=== PATIENT | female | born 1980 | race Caucasian/White ===

== ENCOUNTER 2016-03-01 10:12 | Emergency (ER) | payer OTHER ==
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
[2016-03-01 10:20] VITALS: BP 115/73; PULSE 83; TEMP 98; BMI 31.6
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
[2016-03-01] MEDS ORDERED: DIPHTH,PERTUSS(ACELL),TET 0.5 ML DISP.SYRIN IM ONE (10:36)
== END 2016-03-01 10:59 | disposition home or self-care (01) ==
LOC: FER 10:12
PROC: 3E0234Z Introduction of Serum, Toxoid and Vaccine into Muscle, Percutaneous Approach (ICD-10-PCS; principal; 2016-03-01)
DX: T21.02XA Burn of unspecified degree of abdominal wall, initial encounter (principal); T31.0 Burns involving less than 10% of body surface; T79.8XXA Other early complications of trauma, initial encounter; X19.XXXA Contact with other heat and hot substances, initial encounter; Y93.G3 Activity, cooking and baking; Y92.010 Kitchen of single-family (private) house as the place of occurrence of the external cause; Y99.8 Other external cause status; L24.4 Irritant contact dermatitis due to drugs in contact with skin; T49.0X5A Adverse effect of local antifungal, anti-infective and anti-inflammatory drugs, initial encounter
CPT/HCPCS: 90471; 90715; 99282-25

== ENCOUNTER 2016-06-03 14:58 | Emergency (ER) | payer OTHER ==
--- NOTE | 2016-06-03 15:12 | PDOC ---
History of Present Illness - History of Present Illness Initial Comments: 06/03/16 15:36 The patient is a 36 year old female with no significant past medical hx who presents to the ED complaining of abdominal cramping and diarrhea since today. The patient reports her cramping is localized to the center of her abdomen. She notes multiple episodes of diarrhea today. She notes two days ago she had the same symptoms but yesterday she felt completely fine. She reports she rarely gets stomach aches. She reports associated chills and body aches. She denies sick contacts. The patient denies any nausea or vomiting. She denies fever, dysuria, frequency, vaginal bleeding. Social: Nonsmoker Surgical: Cholecystectomy <Cele Mancuso - Last Filed: 06/03/16 15:36> - History of Present Illness Initial Comments: 06/05/16 07:52 Physical exam: Alert and oriented 3, well-developed well-nourished, no acute distress, cheerful and cooperative Afebrile, vital signs normal No pallor or icterus. PERRLA, ENT clear Neck supple without bruit mass or nodes Chest clear CV regular without murmur or gallop Abdomen nondistended, normal bowel sounds, soft without mass tenderness or organomegaly Extremities no CCE Skin clear, no rash, adequate turgor and wet mucous membranes Neurological intact Impression: Mild gastroenteritis, absolutely no lower quadrant tenderness or indication of appendicitis, ovarian disease, or other more serious abdominal condition. Plan: Intravenous fluids, symptomatic treatment, observation and follow-up as needed. Signed out to Dr. Mcginnis at 4 PM, pending lab results and further evaluation. <Bernabe Bravo - Last Filed: 06/05/16 07:54> - General Chief Complaint: Pain Stated Complaint: MID ABD PAIN Time Seen by Provider: 06/03/16 15:02 Past History <Cele Mancuso - Last Filed: 06/03/16 15:36> - Surgical History Cholecystectomy: Yes - Immunization History Td Vaccination: Yes TDAP Vaccination: (10/2010) Immunization Up to Date: Yes - Psycho/Social/Smoking Cessation Hx Anxiety: No Suicidal Ideation: No Smoking Status: No Smoking History: Never smoked Have you smoked in the past 12 months: No Number of Cigarettes Smoked Daily: 0 Hx Alcohol Use: Yes (occasional) Drug/Substance Use Hx: No Substance Use Type: None Hx Substance Use Treatment: No <MarshaDennisAnabelBernabe Alessandra - Last Filed: 06/05/16 07:54> - Past Medical History Allergies/Adverse Reactions: Allergies Allergy/AdvReac Type Severity Reaction Status Date / Time No Known Allergies Allergy Verified 06/03/16 14:59 Home Medications: Ambulatory Orders NK [No Known Home Medication] 03/01/16 Review of Systems - Review of Systems Able to Perform ROS?: Yes Comments:: 06/03/16 15:36 CONSTITUTIONAL: +Chills, body aches. Absent: fever, diaphoresis, generalized weakness, malaise, loss of appetite HEENT: Absent: rhinorrhea, nasal congestion, throat pain, throat swelling, difficulty swallowing, mouth swelling, ear pain, eye pain, visual Changes CARDIOVASCULAR: Absent: chest pain, syncope, palpitations, irregular heart rate, lightheadedness , peripheral edema RESPIRATORY: Absent: cough, shortness of breath, dyspnea with exertion, orthopnea, wheezing, stridor, hemoptysis GASTROINTESTINAL: +Abdominal cramping, diarrhea. Absent: abdominal distension, constipation, melena, hematochezia GENITOURINARY: Absent: dysuria, frequency, urgency, hesitancy, hematuria, flank pain, genital pain MUSCULOSKELETAL: Absent: myalgia, arthralgia, joint swelling SKIN: Absent: rash, itching, pallor NEUROLOGIC: Absent: headache, focal weakness or paresthesias, dizziness, unsteady gait, seizure, mental status changes, bladder or bowel incontinence PSYCHIATRIC: Absent: anxiety, depression, suicidal or homicidal ideation, hallucinations. <Cele Mancuso - Last Filed: 06/03/16 15:36> *Physical Exam - Vital Signs Last Vital Signs Temp Pulse Resp BP Pulse Ox 98.5 F 82 16 115/77 100 06/03/16 14:58 06/03/16 14:58 06/03/16 14:58 06/03/16 14:58 06/03/16 14:58 - Physical Exam Comments: 06/03/16 15:37 GENERAL: Well developed, well nourished. Awake and alert. In no acute distress. HEENT: Normocephalic, atraumatic. PERRLA, EOMI. No conjunctival pallor. Sclera are non- icteric. Moist mucous membranes. Oropharynx is clear. NECK: Supple. Full ROM. No JVD. Carotid pulses 2+ and symmetric, without bruits. No thyromegaly. No lymphadenopathy. CARDIOVASCULAR: Regular rate and rhythm. No murmurs, rubs, or gallops. Distal pulses are 2+ and symmetric. PULMONARY: No evidence of respiratory distress. Lungs clear to auscultation bilaterally. No wheezing, rales or rhonchi. ABDOMINAL: Soft. Non-tender. Non-distended. No rebound or guarding. No organomegaly. Normoactive bowel sounds. MUSCULOSKELETAL Normal range of motion at all joints. No bony deformities or tenderness. No CVA tenderness. EXTREMITIES: No cyanosis. No clubbing. No edema. No calf tenderness. SKIN: Warm and dry. Normal capillary refill. No rashes. No jaundice. NEUROLOGICAL: Alert, awake, appropriate. Cranial nerves 2-12 intact. No deficits to light touch and temperature in face, upper extremities and lower extremities. PSYCHIATRIC: Cooperative. Good eye contact. Appropriate mood and affect. <Cele Mancuso - Last Filed: 06/03/16 15:36> ED Treatment Course - LABORATORY CBC & Chemistry Diagram: 06/03/16 15:47 06/03/16 15:36 <Bernabe Bravo - Last Filed: 06/05/16 07:54> *DC/Admit/Observation/Transfer - Attestations Scribe Attestion: 06/03/16 15:36 Documentation prepared by Cele Mancuso, acting as medical charge entry specialist for Bernabe Rosas MD/DO. <Cele Mancuso - Last Filed: 06/03/16 15:36> <Bernabe Bravo - Last Filed: 06/05/16 07:54> Diagnosis at time of Disposition: Diarrhea, Mild dehydration - Discharge Dispostion Disposition: HOME Condition at time of disposition: Improved - Patient Instructions Printed Discharge Instructions: Diarrhea (Alternative Therapy), Diarrhea Additional Instructions: You can take some antidiarrheal medication such as Imodium as directed on the box. Return to the emergency department immediately with ANY new, persistent or worsening symptoms. Continue any medications as previously prescribed by your physician. You should follow up with your primary doctor as soon as possible regarding today's emergency department visit. . Please make sure your doctor reviews the results of your emergency evaluation. Thank you for coming to the Emergency Department today for your care. It was a pleasure to see you today. Please note that your evaluation is INCOMPLETE until you follow-up with your doctor.
[2016-06-03 15:28] VITALS: TEMP 98.5; BMI 31.0
[2016-06-03] MEDS ORDERED: ONDANSETRON 4 MG/2 ML VIAL IVPB ONE (15:28)
[2016-06-03] MEDS ORDERED: SODIUM CHLORIDE 1,000 ML IV STA (15:28)
[2016-06-03] MEDS ORDERED: PANTOPRAZOLE SODIUM 40 MG in SODIUM CHLORIDE 100 ML IVPB ONE (15:28)
[2016-06-03] MEDS ORDERED: ONDANSETRON 4 MG/2 ML VIAL ONE (15:32)
[2016-06-03] MEDS ORDERED: PANTOPRAZOLE SODIUM 40 MG VIAL ONE (15:32)
[2016-06-03 16:00] LABS: URINE APPEARANCE Clear; URINE BILIRUBIN Negative (NEGATIVE); URINE BLOOD Negative (NEGATIVE); URINE GLUCOSE (UA) Negative (NEGATIVE); URINE KETONE Negative (NEGATIVE); URINE LEUK ESTERASE Negative (NEGATIVE); URINE NITRITE Negative (NEGATIVE); URINE PROTEIN Negative (NEGATIVE); URINE UROBILINOGEN 0.2 E.U/dl (0.2-1.0)
[2016-06-03 16:01] LABS: URINE COLOR YELLOW
[2016-06-03 16:07] LABS: BASOPHIL 1.5 % (0-2.0); EOSINOPHIL 1.8 % (0-4.5); MCH 25.6 pg (25.7-33.7); MCHC 32.8 g/dl (32.0-36.0); MEAN CELL VOLUME 78.2 fl (80-96); MEAN PLT VOLUME 7.8 fl (7.5-11.1); NEUTROPHILS 67.4 % (42.8-82.8); PLATELET COUNT 222 K/MM3 (134-434); RDW 14.6 % (11.6-15.6); WHITE BLOOD COUNT 6.9 K/mm3 (4.0-10.8)
--- NOTE | 2016-06-03 16:44 | PDOC ---
*Physical Exam - Vital Signs Last Vital Signs Temp Pulse Resp BP Pulse Ox 98.5 F 82 16 115/77 100 06/03/16 14:58 06/03/16 14:58 06/03/16 14:58 06/03/16 14:58 06/03/16 14:58 - Physical Exam Comments: 06/03/16 16:26 Care of this patient was transferred to mo from Dr. Stahl at 1600 hrs. Patient is a 36-year-old female comes in complaining of multiple episodes of diarrhea with associated mid abdominal pain. Patient is receiving IV fluid hydration and also received some antiemetics and Protonix. Patient has blood work pending including a CBC and comp. Exam by Dr. Stahl was nontender abdomen, and normal exam. 06/03/16 17:32 Reevaluation of patient. Patient feels much better post liter fluid and medication. Reexam of abdomen abdomen is soft nontender normal exam. Patient's able to tolerate by mouth's in the emergency room and has had no further diarrhea. Patient's blood work is normal including a normal CBC normal chemistries and normal UA. Patient is not Return to the emergency department immediately with ANY new, persistent or worsening symptoms. Patient discharged home will follow-up with her primary care doctor as needed. ED Treatment Course - LABORATORY CBC & Chemistry Diagram: 06/03/16 15:47 06/03/16 15:36 - ADDITIONAL ORDERS Additional order review: Laboratory Results 06/03/16 15:36 Urine Color Yellow Urine Appearance Clear Urine pH 6.0 Ur Specific [place] 1.020 Urine Protein Negative Urine Glucose (UA) Negative Urine Ketones Negative Urine Blood Negative Urine Nitrite Negative Urine Bilirubin Negative Urine Urobilinogen 0.2 e.u/dl Ur Leukocyte Esterase Negative Urine HCG, Qual Negative 06/03/16 15:47 RBC 5.06 MCV 78.2 L MCHC 32.8 RDW 14.6 MPV 7.8 Neutrophils % 67.4 Lymphocytes % 23.7 Monocytes % 5.6 Eosinophils % 1.8 Basophils % 1.5 - Medications Given in the ED: ED Medications Discontinued Medications Generic Name Dose Route Start Last Admin Trade Name Freq PRN Reason Stop Dose Admin Pantoprazole Sodium 40 mg/ 100 mls @ 200 mls/hr 06/03/16 15:28 06/03/16 16:01 Sodium Chloride IVPB 06/03/16 15:57 200 mls/hr ONCE ONE Administration Ondansetron HCl 4 mg 06/03/16 15:28 06/03/16 15:54 Zofran Injection IVPB 06/03/16 15:29 4 mg ONCE ONE Administration *DC/Admit/Observation/Transfer Diagnosis at time of Disposition: Mild dehydration Diarrhea Qualifiers: Diarrhea type: unspecified type Qualified Code(s): R19.7 - Diarrhea, unspecified - Discharge Dispostion Disposition: HOME Condition at time of disposition: Improved Admit: No - Patient Instructions Printed Discharge Instructions: Diarrhea, Diarrhea (Alternative Therapy) Additional Instructions: You can take some antidiarrheal medication such as Imodium as directed on the box. Return to the emergency department immediately with ANY new, persistent or worsening symptoms. Continue any medications as previously prescribed by your physician. You should follow up with your primary doctor as soon as possible regarding today's emergency department visit. . Please make sure your doctor reviews the results of your emergency evaluation. Thank you for coming to the Emergency Department today for your care. It was a pleasure to see you today. Please note that your evaluation is INCOMPLETE until you follow-up with your doctor.
[2016-06-03 16:59] LABS: ALBUMIN 3.9 g/dl (3.5-5.0); ALK PHOS 70 U/L (32-92); ANION GAP 9 (8-16); BILIRUBIN,TOTAL 0.6 mg/dl (0.2-1.0); CALCIUM 9.1 mg/dl (8.4-10.2); CO2 22 mmol/L (22-28); CREATININE 0.6 mg/dl (0.6-1.3); GLUCOSE,RANDOM 92 mg/dl (74-106); SGOT/AST 18 U/L (10-42); SGPT/ALT 15 U/L (10-40); TOT PROT 7.1 g/dl (6.4-8.3)
[2016-06-03 17:40] VITALS: BP 126/82; PULSE 78
== END 2016-06-03 17:44 | disposition home or self-care (01) ==
LOC: FER 14:58
PROC: 3E033GC Introduction of Other Therapeutic Substance into Peripheral Vein, Percutaneous Approach (ICD-10-PCS; principal; 2016-06-03)
PROC: 3E0337Z Introduction of Electrolytic and Water Balance Substance into Peripheral Vein, Percutaneous Approach (ICD-10-PCS; 2016-06-03)
DX: E86.0 Dehydration (principal)
CPT/HCPCS: 36415; 80053; 81003; 84703; 85025; 96361; 96365; 96375; 99283-25

== ENCOUNTER 2016-10-06 16:18 | Emergency (ER) | payer OTHER ==
[2016-10-06 16:33] VITALS: BP 137/90; PULSE 85; TEMP 98.1; BMI 32.0
--- NOTE | 2016-10-06 16:57 | PDOC ---
History of Present Illness - General History Source: Patient, Old Records Exam Limitations: No Limitations - History of Present Illness Initial Comments: 10/06/16 17:16 The patient is a 36 year old female, with a significant past medical history of anxiety, who presents to the emergency department with nonradiating chest discomfort since earlier today. The patient states that she ate a large meal at the diner earlier today and her symptoms started shortly after. The patient additionally reports some associated epigastric discomfort. The patient reports similar episodes in the past couple of weeks after eating large meals and drinking caffeine. The patient denies shortness of breath. The patient denies nausea, vomiting or diarrhea. Allergies: None reported. Past Surgical History: Cholecystectomy. Social History: Non-smoker. Denies alcohol or drug use. PCP: Dr. Vargas <Parris Mukherjee - Last Filed: 10/06/16 17:17> <Suki Floyd - Last Filed: 10/06/16 18:19> - General Chief Complaint: Chest Pain Stated Complaint: CHEST PAIN, REFLUX, ANXIETY Time Seen by Provider: 10/06/16 16:57 Past History <Parris Mukherjee - Last Filed: 10/06/16 17:17> - Surgical History Cholecystectomy: Yes - Immunization History Td Vaccination: Yes TDAP Vaccination: (10/2010) Immunization Up to Date: Yes - Psycho/Social/Smoking Cessation Hx Anxiety: Yes Suicidal Ideation: No Smoking Status: No Smoking History: Never smoked Have you smoked in the past 12 months: No Number of Cigarettes Smoked Daily: 0 Hx Alcohol Use: Yes (OCCASIONAL) Drug/Substance Use Hx: No Substance Use Type: None Hx Substance Use Treatment: No <Suki Floyd - Last Filed: 10/06/16 18:19> - Past Medical History Allergies/Adverse Reactions: Allergies Allergy/AdvReac Type Severity Reaction Status Date / Time No Known Allergies Allergy Verified 06/03/16 14:59 Home Medications: Ambulatory Orders NK [No Known Home Medication] 03/01/16 Review of Systems - Review of Systems Able to Perform ROS?: Yes Comments:: 10/06/16 17:05 GENERAL/CONSTITUTIONAL: No fever or chills. No weakness. HEAD, EYES, EARS, NOSE AND THROAT: No change in vision. No ear pain or discharge. No sore throat. CARDIOVASCULAR: +Chest pain. Shortness of breath. RESPIRATORY: No cough, wheezing, or hemoptysis. GASTROINTESTINAL: +Epigastric pain. No nausea, vomiting, diarrhea or constipation. GENITOURINARY: No dysuria, frequency, or change in urination. MUSCULOSKELETAL: No joint or muscle swelling or pain. No neck or back pain. SKIN: No rash NEUROLOGIC: No headache, vertigo, loss of consciousness, or change in strength/ sensation. ENDOCRINE: No increased thirst. No abnormal weight change. HEMATOLOGIC/LYMPHATIC: No anemia, easy bleeding, or history of blood clots. ALLERGIC/IMMUNOLOGIC: No hives or skin allergy. <Parris Mukherjee - Last Filed: 10/06/16 17:17> *Physical Exam - Vital Signs Last Vital Signs Temp Pulse Resp BP Pulse Ox 98.1 F 85 16 137/90 96 10/06/16 16:24 10/06/16 16:24 10/06/16 16:24 10/06/16 16:24 10/06/16 16:24 - Physical Exam Comments: 10/06/16 17:08 GENERAL: Awake, alert, and fully oriented, in no acute distress. HEAD: No signs of trauma. EYES: PERRLA, EOMI, sclera anicteric, conjunctiva clear. ENT: Auricles normal inspection, hearing grossly normal, nares patent, oropharynx clear without exudates. Moist mucosa. NECK: Normal ROM, supple, no lymphadenopathy, JVD, or masses. LUNGS: Breath sounds equal, clear to auscultation bilaterally. No wheezes, and no crackles. HEART: Regular rate and rhythm, normal S1 and S2, no murmurs, rubs or gallops. ABDOMEN: Minimal epigastric tenderness. Soft, normoactive bowel sounds. No guarding, no rebound. No masses. EXTREMITIES: Normal range of motion, no edema. No clubbing or cyanosis. No cords , erythema, or tenderness. NEUROLOGICAL: Cranial nerves II through XII grossly intact. Normal speech, normal gait. SKIN: Warm, dry, normal turgor, no rashes or lesions noted. <Parris Mukherjee - Last Filed: 10/06/16 17:17> - Vital Signs Last Vital Signs Temp Pulse Resp BP Pulse Ox 98.1 F 85 16 137/90 96 10/06/16 16:24 10/06/16 16:24 10/06/16 16:24 10/06/16 16:24 10/06/16 16:24 <Suki Floyd - Last Filed: 10/06/16 18:19> Heart Score/ECG Review - ECG Impressions Comment:: EKG read 16:47- NSR 86 bpm, no acute ST/T changes <Suki Floyd - Last Filed: 10/06/16 18:19> Medical Decision Making - Medical Decision Making Patient is low risk for ACS by history. She has symptoms that appear to be associated with consuming greasy foods and large amounts of caffeine, as well as with lack of sleep. I explained that if it is reflux, it will be exacerbated by greasy foods, caffeine, alcohol. Also counseled her that weight loss may help symptoms as well. <Suki Floyd - Last Filed: 10/06/16 18:19> *DC/Admit/Observation/Transfer - Attestations Scribe Attestion: 10/06/16 17:00 Documentation prepared by Parris Mukherjee, acting as medical art therapist for Suki Floyd MD. <Parris Mukherjee - Last Filed: 10/06/16 17:17> - Discharge Dispostion Admit: No <Suki Floyd - Last Filed: 10/06/16 18:19> Diagnosis at time of Disposition: Epigastric abdominal pain - Discharge Dispostion Disposition: HOME Condition at time of disposition: Stable - Referrals Referrals: Patrick Vargas MD [Primary Care Provider] - - Patient Instructions Printed Discharge Instructions: DI for Gastroesophageal Reflux Disease (GERD), GERD Diet Additional Instructions: AVOID DAIRY, GREASY FOODS, CAFFEINE, ALCOHOL, PEPPERMINT. EVEN SMALL AMOUNTS OF WEIGHT LOSS CAN HELP. RETURN TO THE ER IF YOU HAVE SEVERE PAIN, SHORTNESS OF BREATH, SWELLING IN YOUR LEGS, OR ANY OTHER CONCERNING SYMPTOMS.
[2016-10-06] MEDS ORDERED: MAG HYDROX/AL HYDROX/SIMETH 30 ML UNIT-DOSE CUP PO ONE (17:07)
[2016-10-06] MEDS ORDERED: MAG HYDROX/AL HYDROX/SIMETH 30 ML UNIT-DOSE CUP ONE (17:23)
--- NOTE | 2016-10-07 19:36 | EKG ---
Test Reason : Blood Pressure : / mmHG Vent. Rate : 086 BPM Atrial Rate : 086 BPM P-R Int : 120 ms QRS Dur : 100 ms QT Int : 364 ms P-R-T Axes : 053 025 049 degrees QTc Int : 435 ms NORMAL SINUS RHYTHM WITH SINUS ARRHYTHMIA PROBALE ATRIAL ABNORMALITY NO PREVIOUS ECGS AVAILABLE REPEAT EKG IF CLINICALLY INDICATED Confirmed by CHARLA ESCOTO MD ([id number]) on 10/07/2016 7:36:16 PM Referred By: WICHO Confirmed By:CHARLA ESCOTO MD
== END 2016-10-06 17:29 | disposition home or self-care (01) ==
LOC: FER 16:18
DX: R10.13 Epigastric pain (principal); K21.9 Gastro-esophageal reflux disease without esophagitis; F41.9 Anxiety disorder, unspecified
CPT/HCPCS: 93005; 99284-25

== ENCOUNTER 2016-11-16 13:13 | Emergency (ER) | payer OTHER ==
--- NOTE | 2016-11-16 13:33 | PDOC ---
History of Present Illness - General Chief Complaint: Vaginal Sxs Stated Complaint: lump on vagina Time Seen by Provider: 11/16/16 13:22 - History of Present Illness Initial Comments: 11/16/16 13:27 36 F with no PMH presents to ER with 2 days of painful bump on vagina. Pt states that she has had a small nodule there for years and never thought anything of it. However, the past 2 days it has gotten slightly swollen and painful. She tried to pop it, which led to it getting even more swollen. Pt denies F/C. Denies vaginal discharge/bleeding. Denies dysuria. Pt is sexually active with only. No recent h/o STI. Past History - Past Medical History Allergies/Adverse Reactions: Allergies Allergy/AdvReac Type Severity Reaction Status Date / Time No Known Allergies Allergy Verified 06/03/16 14:59 Home Medications: Ambulatory Orders NK [No Known Home Medication] 03/01/16 - Surgical History Cholecystectomy: Yes - Immunization History Td Vaccination: Yes TDAP Vaccination: (10/2010) Immunization Up to Date: Yes - Suicide/Smoking/Psychosocial Hx Smoking Status: No Smoking History: Never smoked Have you smoked in the past 12 months: No Number of Cigarettes Smoked Daily: 0 Hx Alcohol Use: Yes (OCCASIONAL) Drug/Substance Use Hx: No Substance Use Type: None Hx Substance Use Treatment: No Review of Systems - Review of Systems Comments:: 11/16/16 13:29 "GENERAL/CONSTITUTIONAL: No fever or chills. No weakness. HEAD, EYES, EARS, NOSE AND THROAT: No change in vision. No ear pain or discharge. No sore throat. CARDIOVASCULAR: No chest pain or shortness of breath. RESPIRATORY: No cough, wheezing, or hemoptysis. GASTROINTESTINAL: No nausea, vomiting, diarrhea or constipation. GENITOURINARY: +bump on vagina, No dysuria, frequency, or change in urination. MUSCULOSKELETAL: No joint or muscle swelling or pain. No neck or back pain. SKIN: No rash NEUROLOGIC: No headache, vertigo, loss of consciousness, or change in strength/ sensation. ENDOCRINE: No increased thirst. No abnormal weight change. HEMATOLOGIC/LYMPHATIC: No anemia, easy bleeding, or history of blood clots. ALLERGIC/IMMUNOLOGIC: No hives or skin allergy. " *Physical Exam - Physical Exam Comments: 11/16/16 13:29 "GENERAL: Awake, alert, and fully oriented, in no acute distress HEAD: No signs of trauma EYES: PERRLA, EOMI, sclera anicteric, conjunctiva clear ENT: Auricles normal inspection, hearing grossly normal, nares patent, oropharynx clear without exudates. Moist mucosa NECK: Nontender, no stepoffs, Normal ROM, supple, no lymphadenopathy, JVD, or masses LUNGS: Breath sounds equal, clear to auscultation bilaterally. No wheezes, and no crackles HEART: Regular rate and rhythm, normal S1 and S2, no murmurs, rubs or gallops ABDOMEN: Soft, nontender, normoactive bowel sounds. No guarding, no rebound. No masses : small, <1cm bartholin's cyst on R labia majora, no active drainage, no fluctuance, no surrounding erythema or induration EXTREMITIES: Normal range of motion, no edema. No clubbing or cyanosis. No cords, erythema, or tenderness NEUROLOGICAL: Cranial nerves II through XII intact. 5/5 strength and sensation in all extremities, Normal speech, normal gait SKIN: Warm, Dry, normal turgor, no rashes or lesions noted. " Medical Decision Making - Medical Decision Making 11/16/16 13:31 36 F with bartholin's cyst. No signs of abscess at this time. No significant collection found on exam to be drained. Lesion is not herpetic appearing, not vesicular. Does not appear to be syphilis or other STI. - Warm compresses, supportive care - F/u professor of engineering *DC/Admit/Observation/Transfer Diagnosis at time of Disposition: Cyst of Bartholin's gland duct - Discharge Dispostion Disposition: HOME Condition at time of disposition: Stable - Referrals Referrals: Shady Parada MD [Staff Physician] - - Patient Instructions Printed Discharge Instructions: DI for Bartholin Gland Cyst Additional Instructions: Apply warm compresses for comfort. If you experience worsening pain, swelling, redness, or any other concerning symptoms, return to the ER immediately. Follow up with your under seal operator within 1-2 weeks. Call the number provided to make an appointment. - Attestations Physician Attestion: 11/16/16 13:35 I, Dr. Ramehs Arreguin MD, attest that this document has been prepared under my direction and personally reviewed by me in its entirety. I further attest, that it accurately reflects all work, treatment, procedures and medical decision -making performed by me.
[2016-11-16 13:37] VITALS: BP 124/77; PULSE 88; TEMP 98.4; BMI 32.0
== END 2016-11-16 13:45 | disposition home or self-care (01) ==
LOC: FER 13:13
DX: N75.0 Cyst of Bartholin's gland (principal)
CPT/HCPCS: 99281-25

== ENCOUNTER 2017-01-12 18:13 | Emergency (ER) | payer OTHER ==
[2017-01-12 18:30] VITALS: BP 129/68; PULSE 65; TEMP 98.4; BMI 31.7
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
== END 2017-01-12 18:34 | disposition home or self-care (01) ==
LOC: FER 18:13
CPT/HCPCS: 99282-25

== ENCOUNTER 2017-03-21 03:02 | Emergency (ER) | payer OTHER ==
[2017-03-21 03:09] VITALS: BP 123/76; PULSE 88; TEMP 98.3; BMI 32.5
--- NOTE | 2017-03-21 03:17 | PDOC ---
History of Present Illness - General Chief Complaint: Toothache Stated Complaint: TOOTH PAIN Time Seen by Provider: 03/21/17 03:09 - History of Present Illness Initial Comments: This 37-year-old woman with no significant past medical history presents with worsening pain in abscess of the the right upper central incisor. Patient describes a long history of pain in this tooth; Temporary cap was placed last year. Pain and swelling of the gingival surface of the tooth began several days ago. She was seen a few days ago by her dentist and was started on amoxicillin with plans for root canal procedure. According the patient, she requires insurance approval for the procedure and it is planned for 2 weeks from now. Over the last 24 hours, the pain has worsened. Patient describes taking ibuprofen (OTC) with little relief; last dose was at 11 PM last night. No measured fever; patient describes "chills". No significant facial swelling. Past History - Past Medical History Allergies/Adverse Reactions: Allergies Allergy/AdvReac Type Severity Reaction Status Date / Time No Known Allergies Allergy Verified 01/12/17 18:20 Home Medications: Ambulatory Orders Amox-Tr/K Cl [Augmentin - 875Mg Tablet] 1 tab PO BID #14 tablet 03/21/17 Amoxicillin - [Amoxicillin 500mg Capsule -] 500 mg PO TID 03/21/17 Ibuprofen [Motrin -] 800 mg PO PRN PRN 03/21/17 Oxycodone HCl/Acetaminophen [Percocet 5-325 mg Tablet] 1 - 2 tab PO Q6H PRN #12 tab MDD 3 tabs 03/21/17 COPD: No - Surgical History Cholecystectomy: Yes - Immunization History Td Vaccination: Yes TDAP Vaccination: (10/2010) Immunization Up to Date: Yes - Suicide/Smoking/Psychosocial Hx Smoking Status: No Smoking History: Never smoked Have you smoked in the past 12 months: No Number of Cigarettes Smoked Daily: 0 Hx Alcohol Use: No Drug/Substance Use Hx: No Substance Use Type: None Hx Substance Use Treatment: No Review of Systems - Review of Systems Able to Perform ROS?: Yes Comments:: 12 point review of systems is negative except for what is noted in the history of present illness *Physical Exam - Vital Signs Last Vital Signs Temp Pulse Resp BP Pulse Ox 98.3 F 88 16 123/76 100 03/21/17 03:06 03/21/17 03:06 03/21/17 03:06 03/21/17 03:06 03/21/17 03:06 - Physical Exam Comments: GENERAL: Adult female, alert and oriented 3, in moderate distress secondary to tooth pain HEAD: Normal with no signs of trauma. EYES: PERRLA, EOMI, sclera anicteric, conjunctiva clear. ENT: Ears normal, nares patent, oropharynx clear without exudates. Moderate edema/marked tenderness gingival surface above right upper central incisor NECK: Normal range of motion, supple without lymphadenopathy, JVD, or masses. Medical Decision Making - Medical Decision Making This 37-year-old woman presents with progressive pain and swelling around the right upper central incisor; she has been started on amoxicillin by her dentist but pain and swelling is worsening over the last 24 hours. Exam is consistent with a dental abscess; patient does not have fever or facial swelling. No history of ALLERGIES Patient will be started on Augmentin 875/125 and amoxicillin will be discontinued. Toradol 60 mg IM administered now for anti-inflammatory/analgesic effects. Patient should continue ibuprofen/naproxen/acetaminophen as needed for mild-to- moderate pain. Prescription for Percocet 5/325 (#12) one to 2 tabs every 4 hours up to 3 tabs a day will be sent to pharmacy. Patient should contact her dentist for reevaluation on March 23. She develops significant facial swelling or fever, she should return to the emergency room *DC/Admit/Observation/Transfer Diagnosis at time of Disposition: Dental abscess - Discharge Dispostion Disposition: HOME Condition at time of disposition: Stable - Prescriptions Prescriptions: Amox-Tr/K Cl [Augmentin - 875Mg Tablet] 1 tab PO BID #14 tablet Oxycodone HCl/Acetaminophen [Percocet 5-325 mg Tablet] 1 - 2 tab PO Q6H PRN #12 tab MDD 3 tabs PRN Reason: Severe Pain - Referrals - Patient Instructions Printed Discharge Instructions: DI for Tooth Abscess Additional Instructions: Stop amoxicillin Begin Augmentin 875/125 twice a day for 1 week; take with food Ibuprofen/naproxen/acetaminophen as needed for [id number] pain Percocet 5/325 one to 2 tabs every 6 hours up to 3 tabs per day for severe pain Follow-up with your dentist on Thursday, March 23 Return to ER if you have worsening pain/facial swelling or develop fever - Post Discharge Activity
[2017-03-21] MEDS ORDERED: KETOROLAC TROMETHAMINE 60 MG/2 ML VIAL IM ONE (03:28)
[2017-03-21] MEDS ORDERED: AMOX TR/POT CLAV 875MG/125MG TABLETS (FP) PO ONE (03:29)
[2017-03-21] MEDS ORDERED: KETOROLAC TROMETHAMINE 60 MG/2 ML VIAL ONE (03:30)
[2017-03-21] MEDS ORDERED: AMOX TR/POT CLAV 875MG/125MG TABLETS (FP) ONE (03:30)
== END 2017-03-21 03:40 | disposition home or self-care (01) ==
LOC: FER 03:02
PROC: 3E0233Z Introduction of Anti-inflammatory into Muscle, Percutaneous Approach (ICD-10-PCS; principal; 2017-03-21)
DX: K04.7 Periapical abscess without sinus (principal)
CPT/HCPCS: 99282-25

== ENCOUNTER 2017-05-31 13:52 | Emergency (ER) | payer OTHER ==
[2017-05-31 13:59] VITALS: BP 105/67; PULSE 90; TEMP 98.3; BMI 31.6
--- NOTE | 2017-05-31 14:17 | PDOC ---
History of Present Illness - General Chief Complaint: Sore Throat Stated Complaint: SORE THROAT Time Seen by Provider: 05/31/17 14:07 History Source: Patient Exam Limitations: No Limitations - History of Present Illness Initial Comments: 05/31/17 14:13 37 y/o female with sore throat since . No fever but chills. No SOB or chest pain. Mild cough with phlegm production. No N/V/d/c. No SOB or chest pain. Taking Cepacol OTC with mild relief. Severity: mild Past History - Past Medical History Allergies/Adverse Reactions: Allergies Allergy/AdvReac Type Severity Reaction Status Date / Time No Known Allergies Allergy Verified 01/12/17 18:20 Home Medications: Ambulatory Orders Ibuprofen [Motrin -] 800 mg PO PRN PRN 03/21/17 Amoxicillin - [Amoxicillin 875mg Tablet -] 875 mg PO BID #14 tab 05/31/17 COPD: No - Surgical History Cholecystectomy: Yes - Immunization History Td Vaccination: Yes TDAP Vaccination: (10/2010) Immunization Up to Date: Yes - Suicide/Smoking/Psychosocial Hx Smoking Status: No Smoking History: Never smoked Have you smoked in the past 12 months: No Number of Cigarettes Smoked Daily: 0 Hx Alcohol Use: No Drug/Substance Use Hx: No Substance Use Type: None Hx Substance Use Treatment: No Review of Systems - Review of Systems Able to Perform ROS?: Yes Is the patient limited Moldovan proficient: No Constitutional: Yes: Chills, Fever HEENTM: Yes: Throat Pain Respiratory: Yes: Cough. No: Shortness of Breath Cardiac (ROS): No: Chest Pain ABD/GI: No: Nausea, Vomiting All Other Systems: Reviewed and Negative *Physical Exam - Vital Signs Last Vital Signs Temp Pulse Resp BP Pulse Ox 98.3 F 90 16 105/67 96 05/31/17 13:54 05/31/17 13:54 05/31/17 13:54 05/31/17 13:54 05/31/17 13:54 - Physical Exam General Appearance: Yes: Nourished, Appropriately Dressed. No: Apparent Distress HEENT: positive: EOMI, SARAH, Normal ENT Inspection, Normal Voice, Symmetrical. negative: Pharynx Normal (injected, no exudates, uvula midline, no peritonsillar abscess seen) Neck: positive: Trachea midline, Supple. negative: Tender, Normal Thyroid, Rigid Respiratory/Chest: positive: Lungs Clear, Normal Breath Sounds. negative: Chest Tender, Respiratory Distress Cardiovascular: positive: Regular Rhythm, Regular Rate, S1, S2. negative: Edema , JVD, Murmur Vascular Pulses: Femoral (R): 4+, Femoral (L): 4+, Carotid (R): 4+, Carotid (L) : 4+, Dorsalis-Pedis (R): 4+, Doralis-Pedis (L): 4+ Gastrointestinal/Abdominal: positive: Normal Bowel Sounds, Flat, Soft. negative : Tender, Organomegaly, Pulsatile Mass Lymphatic: negative: Adenopathy, Tenderness, Other Musculoskeletal: positive: Normal Inspection. negative: CVA Tenderness Extremity: positive: Normal Capillary Refill, Normal Inspection, Normal Range of Motion. negative: Tender Integumentary: positive: Normal Color, Dry, Warm Neurologic: positive: belt sander stone II-XII NML intact, Fully Oriented, Alert, Normal Mood/ Affect, Normal Response, Motor Strength 5/5 ED Treatment Course - ADDITIONAL ORDERS Additional order review: 05/31/17 14:16 Pt with sore throat. Will check for strep. Pt is in agreement with plan. 05/31/17 14:52 Strep is positive, will cover with Amoxicillin *DC/Admit/Observation/Transfer Diagnosis at time of Disposition: Strep pharyngitis - Discharge Dispostion Disposition: HOME Condition at time of disposition: Good Admit: No - Referrals Referrals: Patrick Vargas MD [Primary Care Provider] - - Patient Instructions Printed Discharge Instructions: DI for Strep Throat Additional Instructions: Fluids, rest, Tylenol Amoxicillin 875 mg 2x/day for 7 days If worsen return to ER - Post Discharge Activity
== END 2017-05-31 15:00 | disposition home or self-care (01) ==
LOC: FER 13:52
DX: J02.0 Streptococcal pharyngitis (principal)
CPT/HCPCS: 87070; 87077; 87430; 99282-25

== ENCOUNTER 2017-07-05 19:13 | Emergency (ER) | payer OTHER ==
[2017-07-05 19:21] VITALS: BP 129/84; PULSE 87; TEMP 97.9; BMI 29.5
--- NOTE | 2017-07-05 19:23 | PDOC ---
History of Present Illness - General History Source: Patient Exam Limitations: No Limitations - History of Present Illness Initial Comments: 07/05/17 19:57 The patient is a 37 year old female with a significant PMH of anxiety who presents to the emergency department with left sided jaw pain since earlier today. The patient reports that the pain in her left jaw radiates to the upper left side of her face and to the back of her neck. She describes the pain as a burning sensation. The patient reports that she has experienced similar episodes before but, not this bad. The patient reports that she feel disoriented. The patient denies any chest pain, shortness of breath, headache and dizziness. She denies fever, chills, nausea, vomit, diarrhea, constipation or urinary symptoms. The patient denies any other complaints PAST MEDICAL HISTORY: anxiety PAST SURGICAL HISTORY: no significant history FAMILY HISTORY: no pertinent history SOCIAL HISTORY: Pt lives with family(has 5 children) and is employed. MEDICATIONS: reviewed ALLERGIES: As per nursing notes Adult ROS General: (+) left jaw pain. No fevers or chills, no weakness, no weight loss HEENT: No change in vision. No sore throat,. No ear pain CardioVascular: No chest pain or shortness of breath Respiratory:No cough, or wheezing. Gastrointestinal: no nausea, vomiting, diarrhea or constipation, No rectal bleeding Genitourinary: No dysuria, hematuria, or frequency Musculoskeletal: No joint or muscle pain or swelling Neurologic: No headache, vertigo, dizziness or loss of consciousness Psychiatric: nor depression Skin: No rashes or easy bruising Endocrine: no increased thirst or abnormal weight change Allergic: no skin or latex allergy All other systems reviewed and normal Basic PE GENERAL: The patient is awake, alert, and fully oriented, in no acute distress. HEAD: (+) tenderness and mild swelling of left TMJ. No malocclusion or clicking with opening and closing of jaw. Normal with no signs of trauma. EYES: Pupils equal, round and reactive to light, extraocular movements intact, sclera anicteric, conjunctiva clear. EXTREMITIES: Normal range of motion, no edema. NEUROLOGICAL: Normal speech, normal gait. PSYCH: Normal mood, normal affect. SKIN: Warm, Dry, normal turgor, no rashes or lesions noted. <Perla Nash - Last Filed: 07/05/17 19:57> - General History Source: Patient Exam Limitations: No Limitations - History of Present Illness Initial Comments: A portion of this note was documented by scribe services under my direction. I have reviewed the details of the note, within reason, and agree with the documentation. The case summary and management plan written by me. Assessment and plan: This is a 37-year-old female who comes in complaining of pain in the area of her left TMJ. Patient said she felt a pop in the TMJ area and had had pain and a feeling of discomfort and heaviness in the area. Patient said it has happened in the past but resolved and he did not resolve this time so she became concerned. Patient also said that she uses a bite guard at night because she is having some dental work and thinks that she does grind her teeth at night. Patient has not taken anything for the pain. A head CT was done to rule out any intercranial as of the discomfort/heaviness. The head CT was normal. Patient was given Toradol with marked improvement in her symptoms. Patient's has some prescription Naprosyn which she can take Advil her to take it twice a day with food. <Ora Villegas I - Last Filed: 07/05/17 21:02> - General Chief Complaint: Pain, Acute Stated Complaint: PAIN LEFT JAW AND SIDE OF FACE Time Seen by Provider: 07/05/17 19:19 Past History <Perla Nash - Last Filed: 07/05/17 19:57> - Past Medical History COPD: No Other medical history: ANXIETY - Surgical History Cholecystectomy: Yes - Immunization History Td Vaccination: Yes TDAP Vaccination: (10/2010) Immunization Up to Date: Yes - Suicide/Smoking/Psychosocial Hx Smoking Status: No Smoking History: Never smoked Have you smoked in the past 12 months: No Number of Cigarettes Smoked Daily: 0 Information on smoking cessation initiated: No Hx Alcohol Use: No Drug/Substance Use Hx: No Substance Use Type: None Hx Substance Use Treatment: No <Ora Villegas I - Last Filed: 07/05/17 21:02> - Past Medical History Allergies/Adverse Reactions: Allergies Allergy/AdvReac Type Severity Reaction Status Date / Time No Known Allergies Allergy Verified 07/05/17 19:15 Home Medications: Ambulatory Orders Naproxen 500 mg PO BID #14 tablet. 07/05/17 *Physical Exam - Vital Signs Last Vital Signs Temp Pulse Resp BP Pulse Ox 97.9 F 87 16 129/84 96 07/05/17 19:17 07/05/17 19:17 07/05/17 19:17 07/05/17 19:17 07/05/17 19:17 <Perla Nash - Last Filed: 07/05/17 19:57> - Vital Signs Last Vital Signs Temp Pulse Resp BP Pulse Ox 97.9 F 87 16 129/84 96 07/05/17 19:17 07/05/17 19:17 07/05/17 19:17 07/05/17 19:17 07/05/17 19:17 <Ora Villegas I - Last Filed: 07/05/17 21:02> ED Treatment Course - Medications Given in the ED: ED Medications Discontinued Medications Generic Name Dose Route Start Last Admin Trade Name Ruthy PRN Reason Stop Dose Admin Amoxicillin 500 mg 07/05/17 19:30 07/05/17 19:44 Amoxicillin - PO 07/05/17 19:31 Not Given ONCE ONE Ketorolac Tromethamine 60 mg 07/05/17 19:35 07/05/17 19:44 Toradol Injection - IM 07/05/17 19:36 60 mg ONCE ONE Administration <Perla Nash - Last Filed: 07/05/17 19:57> *DC/Admit/Observation/Transfer - Attestations Scribe Attestion: 07/05/17 19:57 Documentation prepared by Perla Nash, acting as medical billing manager for Ora Villegas MD. <Perla Nash - Last Filed: 07/05/17 19:57> - Discharge Dispostion Decision to Admit order: No <Ora Villegas I - Last Filed: 07/05/17 21:02> Diagnosis at time of Disposition: Facial pain - Discharge Dispostion Disposition: HOME Condition at time of disposition: Stable - Referrals Referrals: Patrick Vargas MD [Primary Care Provider] - - Patient Instructions Additional Instructions: For the pain take naproxen 1 tablet twice a day with food as needed. Follow-up with your dentist next week. Also consider following up with a neurologist if the dentist is unable to resolve the cause of your pain. Return to the emergency department immediately with ANY new, persistent or worsening symptoms. Continue any medications as previously prescribed by your physician. You should follow up with your primary doctor as soon as possible regarding today's emergency department visit. . Please make sure your doctor reviews the results of your emergency evaluation. Thank you for coming to the Emergency Department today for your care. It was a pleasure to see you today. Please note that your evaluation is INCOMPLETE until you follow-up with your doctor. - Post Discharge Activity
[2017-07-05] MEDS: AMOXICILLIN 500 MG CAPSULE (FP) PO ONE ×2 (19:33→19:44)
[2017-07-05] MEDS ORDERED: AMOXICILLIN 250 MG CAPSULE ONE (19:33)
[2017-07-05] MEDS ORDERED: KETOROLAC TROMETHAMINE 60 MG/2 ML VIAL IM ONE ×2 (19:35→20:36)
[2017-07-05] MEDS ORDERED: KETOROLAC TROMETHAMINE 60 MG/2 ML VIAL ONE (19:37)
== END 2017-07-05 21:04 | disposition home or self-care (01) ==
LOC: FER 19:13
PROC: 3E0233Z Introduction of Anti-inflammatory into Muscle, Percutaneous Approach (ICD-10-PCS; principal; 2017-07-05)
DX: G50.1 Atypical facial pain (principal); F41.9 Anxiety disorder, unspecified
CPT/HCPCS: 70450-TC; 96372; 99281-25

== ENCOUNTER 2017-07-11 16:10 | Emergency (ER) | payer OTHER ==
--- NOTE | 2017-07-11 16:25 | PDOC ---
History of Present Illness <Glenna Donovan - Last Filed: 07/11/17 17:18> - General History Source: Patient Exam Limitations: No Limitations - History of Present Illness Initial Comments: 07/11/17 17:35 The patient is a 37 year old female with a significant PMH of anxiety who presents to the emergency department with head and neck pain since earlier today. The patient reports that she began to experience right sided head and neck pain earlier today. The patient reports associated lightheadedness and dizziness with her right sided head and neck pain. The patient states that she feels disoriented. The patient reports that she had a similar episode of pain about 1 week ago on her left side by which she got a head CT and was treated with pain medication. The patient reports that she followed up with her PCP by which she was given antibiotics for a left ear infection . The patient reports that the pain is now on her right side. She reports that it is worsened when lying down. She describes the pain in her ear on the right side as a burning sensation . She reports taking aleve and tylenol to help with her pain. She reports taking both again today prior to arrival but, with minimal relief. The patient denies any fever, chills, nausea, vomit, diarrhea, constipation or urinary symptoms. She denies any hearing problems, runny nose or sore throat. She denies chest pain, shortness of breath or headache. The patient denies any other complaints. <Perla Nash - Last Filed: 07/11/17 17:36> - General Chief Complaint: Head/Neck problem Stated Complaint: HEADACHE AND PAIN IN NECK Time Seen by Provider: 07/11/17 16:25 Past History - Past Medical History COPD: No - Surgical History Cholecystectomy: Yes - Immunization History Td Vaccination: Yes TDAP Vaccination: (10/2010) Immunization Up to Date: Yes - Suicide/Smoking/Psychosocial Hx Smoking Status: No Smoking History: Never smoked Have you smoked in the past 12 months: No Number of Cigarettes Smoked Daily: 0 Hx Alcohol Use: No Drug/Substance Use Hx: No Substance Use Type: None Hx Substance Use Treatment: No <Glenna Donovan - Last Filed: 07/11/17 17:18> <Perla Nash - Last Filed: 07/11/17 17:36> - Past Medical History Allergies/Adverse Reactions: Allergies Allergy/AdvReac Type Severity Reaction Status Date / Time No Known Allergies Allergy Verified 07/11/17 16:12 Home Medications: Ambulatory Orders Ciprofloxacin [Cipro (Restricted To Id)] 500 mg PO Q12H 07/11/17 Ibuprofen 800 mg PO TID #30 tablet 07/11/17 Review of Systems - Review of Systems Able to Perform ROS?: Yes Comments:: 07/11/17 17:35 GENERAL/CONSTITUTIONAL: (+)right sided head and neck pain. No fever or chills. No weakness. HEAD, EYES, EARS, NOSE AND THROAT:(+) ear pain. No change in vision. No sore throat. CARDIOVASCULAR: No chest pain or shortness of breath. RESPIRATORY: No cough, wheezing, or hemoptysis. GASTROINTESTINAL: No nausea, vomiting, diarrhea or constipation. GENITOURINARY: No dysuria, frequency, or change in urination. MUSCULOSKELETAL: No joint or muscle swelling or pain. No back pain. SKIN: No rash NEUROLOGIC:(+)lightheaded, dizzy. No headache, vertigo, loss of consciousness, or change in strength/sensation. ENDOCRINE: No increased thirst. No abnormal weight change. HEMATOLOGIC/LYMPHATIC: No anemia, easy bleeding, or history of blood clots. ALLERGIC/IMMUNOLOGIC: No hives or skin allergy. <Perla Nash - Last Filed: 07/11/17 17:36> *Physical Exam - Vital Signs Last Vital Signs Temp Pulse Resp BP Pulse Ox 98.1 F 79 16 125/66 96 07/11/17 16:11 07/11/17 16:11 07/11/17 16:11 07/11/17 16:11 07/11/17 16:11 - Physical Exam Comments: 07/11/17 17:35 GENERAL: Awake, alert, and fully oriented, in no acute distress HEAD: No signs of trauma EYES: PERRLA, EOMI, sclera anicteric, conjunctiva clear ENT: Auricles normal inspection, hearing grossly normal, nares patent, oropharynx clear without exudates. Moist mucosa. TM clear. NECK: Normal ROM, supple, no lymphadenopathy, JVD, or masses LUNGS: Breath sounds equal, clear to auscultation bilaterally. No wheezes, and no crackles HEART: Regular rate and rhythm, normal S1 and S2, no murmurs, rubs or gallops ABDOMEN: Soft, nontender, normoactive bowel sounds. No guarding, no rebound. No masses EXTREMITIES: Normal range of motion, no edema. No clubbing or cyanosis. No cords, erythema, or tenderness NEUROLOGICAL: Cranial nerves II through XII grossly intact. Normal speech, normal gait SKIN: Warm, Dry, normal turgor, no rashes or lesions noted. <Perla Nash - Last Filed: 07/11/17 17:36> ED Treatment Course - Medications Given in the ED: ED Medications Discontinued Medications Generic Name Dose Route Start Last Admin Trade Name Vadimq PRN Reason Stop Dose Admin Ketorolac Tromethamine 60 mg 07/11/17 16:39 07/11/17 16:49 Toradol Injection - IM 07/11/17 16:40 60 mg ONCE ONE Administration <Perla Nash - Last Filed: 07/11/17 17:36> Medical Decision Making - Medical Decision Making 07/11/17 17:19 Pt presents to the ED with atraumatic head and neck pain that initially was centered around her left ear and now is centered around her right ear. Denies other symptoms. Seen in the ED this week for the same complaint with negative CT. + point tenderness over the trapezius muscle--exam is otherwise normal. No concern for intracranial bleed or infection. Wioll discharge home with follow up with her PMD. <Glenna Donovan - Last Filed: 07/11/17 17:18> *DC/Admit/Observation/Transfer - Discharge Dispostion Decision to Admit order: No <Glenna Donovan - Last Filed: 07/11/17 17:18> - Attestations Scribe Attestion: 07/11/17 17:36 Documentation prepared by Perla Nash, acting as phlebotomist medical lab assistant for Glenna Donovan MD. <Perla Nash - Last Filed: 07/11/17 17:36> Diagnosis at time of Disposition: Headache Qualifiers: Headache type: unspecified Headache chronicity pattern: acute headache Intractability: not intractable Qualified Code(s): R51 - Headache - Discharge Dispostion Disposition: HOME Condition at time of disposition: Good - Prescriptions Prescriptions: Ibuprofen 800 mg PO TID #30 tablet
[2017-07-11 16:26] VITALS: BP 125/66; PULSE 79; TEMP 98.1; BMI 32.5
[2017-07-11] MEDS ORDERED: KETOROLAC TROMETHAMINE 60 MG/2 ML VIAL IM ONE (16:39)
[2017-07-11] MEDS ORDERED: KETOROLAC TROMETHAMINE 60 MG/2 ML VIAL ONE (16:46)
== END 2017-07-11 17:28 | disposition home or self-care (01) ==
LOC: FER 16:10
PROC: 3E0233Z Introduction of Anti-inflammatory into Muscle, Percutaneous Approach (ICD-10-PCS; principal; 2017-07-11)
DX: R51 Headache (principal)
CPT/HCPCS: 99282-25

== ENCOUNTER 2017-10-02 16:24 | Emergency (ER) | payer OTHER ==
[2017-10-02 16:50] VITALS: BP 117/68; PULSE 97; TEMP 98.7; BMI 31.0
[2017-10-02] MEDS ORDERED: IBUPROFEN 400 MG TABLET (FP) PO ONE (17:28)
--- NOTE | 2017-10-02 17:45 | PDOC ---
History of Present Illness - General Chief Complaint: Pain Stated Complaint: LEFT LEG PAIN Time Seen by Provider: 10/02/17 16:40 History Source: Patient Exam Limitations: No Limitations - History of Present Illness Initial Comments: 10/02/17 17:45 37y F no pmhx presents with L leg pain - pt she has chronic bumpy veins on her leg that usually dont bother her, but on a recent trip to [facility], she developed increasing pain on these bumps and the bumps became more raised/ tender. pt denies any sob, abd pain, cp, hemoptysis, calf pain. The pain is primarily on the latearl aspect of her left leg and on the distal aspect of her thigh. Pt saw her PMD today who referred her for US ROS: EXT: painful bumps on L leg/thigh RESP: no sob, cough, hemptysis CARDS: no cp General: no fevers PE: GENERAL: The patient is awake, alert, and fully oriented, Nontoxic - in no acute distress. HEAD: Normocephalic, atraumatic. EYES: extraocular movements intact, sclera anicteric, conjunctiva clear. ENT: Normal voice, Moist mucous membranes. NECK: Normal range of motion, supple EXTREMITIES: Normal range of motion, no edema. neg homans sign, +focal rasied lesions and tenderness on superficial veins SKIN: Warm, Dry, normal turgor, ddx: suspect superficial thrombphelibitis - consider possibel DVT will give motrin will obtain US Past History - Past Medical History Allergies/Adverse Reactions: Allergies Allergy/AdvReac Type Severity Reaction Status Date / Time No Known Allergies Allergy Verified 10/02/17 16:37 Home Medications: Ambulatory Orders NK [No Known Home Medication] 10/02/17 COPD: No - Surgical History Cholecystectomy: Yes - Immunization History Td Vaccination: Yes TDAP Vaccination: (10/2010) Immunization Up to Date: Yes - Suicide/Smoking/Psychosocial Hx Smoking Status: No Smoking History: Never smoked Have you smoked in the past 12 months: No Number of Cigarettes Smoked Daily: 0 Information on smoking cessation initiated: No Hx Alcohol Use: No Drug/Substance Use Hx: No Substance Use Type: None Hx Substance Use Treatment: No *Physical Exam - Vital Signs Last Vital Signs Temp Pulse Resp BP Pulse Ox 98.7 F 97 H 20 117/68 96 10/02/17 16:27 10/02/17 16:27 10/02/17 16:27 10/02/17 16:27 10/02/17 16:27 ED Treatment Course - RADIOLOGY Radiology Studies Ordered: Category Date Time Status DUPLEX VASCUL US-1 LEG [US] Stat Ultrasound 10/02/17 17:28 Ordered Medical Decision Making - Medical Decision Making 10/02/17 19:00 US suggestive of superfical thrombphlebitis will dc the pt with pmd fu for repeat US elevation, rest, nsaids *DC/Admit/Observation/Transfer Diagnosis at time of Disposition: Superficial thrombophlebitis Qualifiers: Superficial thrombophlebitis-Involved body area: lower extremity Laterality: left Qualified Code(s): I80.02 - Phlebitis and thrombophlebitis of superficial vessels of left lower extremity - Discharge Dispostion Disposition: HOME Condition at time of disposition: Stable Decision to Admit order: No - Referrals Referrals: Leatha Jackson MD [Primary Care Provider] - - Patient Instructions Printed Discharge Instructions: DI for Superficial Thrombophlebitis Additional Instructions: Please keep your leg elevated to reduce swelling. Take motrin for pain. Use cool compresses Get a repeat ultrasound in 3-5 days to ensure there is no propgation of the blood clot. Print Language: BURKINAN - Post Discharge Activity
[2017-10-02] MEDS ORDERED: IBUPROFEN 600 MG TABLET (FP) PO ONE (18:10)
== END 2017-10-02 19:01 | disposition home or self-care (01) ==
LOC: FER 16:24
DX: I80.02 Phlebitis and thrombophlebitis of superficial vessels of left lower extremity (principal)
CPT/HCPCS: 93971-TC; 99281-25

== ENCOUNTER 2018-02-21 08:33 | Emergency (ER) | payer OTHER ==
--- NOTE | 2018-02-21 08:37 | PDOC ---
History of Present Illness - General Chief Complaint: Cold Symptoms Stated Complaint: cough Time Seen by Provider: 02/21/18 08:35 History Source: Patient Exam Limitations: No Limitations - History of Present Illness Initial Comments: 02/21/18 09:05 38 YOF with h/o anxiety presenting with subjective fevers and chills intermittently x 2 days, beginning Thursday night and again this morning at 4am. a /w dry cough, myalgias and back pain, nausea. Yesterday, she had a normal meal and had episode of brown, nonbloody loose BM. has been taking tylenol/motrin as needed, last dose this morning at 4am with relief. Tolerating PO intake and normal appetite.. Denies urinary sx, vomiting/diarrhea, sore throat/ear aches, headache, leg swelling or neurologic changes. +sick contact: son with similar URI sx, currently being treated with Tamiflu, awaiting formal results tomorrow. No travel history. Allergies: seasonal Past Medical History: anxiety Social history: Lives with family. No smoking. No alcohol. No illicit drugs. Surgical history: C section and cholecystectomy ROS Constitutional: +subjective fevers or chills. HEENT: +dizziness. no headache. No congestion. No visual/hearing disturbances. CVS: no cp or syncope. Resp: no sob. No wheezing. +cough Gastrointestinal: +loose BM, nausea. no abdominal pain, diarrhea or vomiting. Genitourinary: no urinary sx, hematuria. MUSCULOSKELETAL: +myalgias, back pain. No neck pain. SKIN: no redness or skin changes, no discharge, no rash. No wounds. Hematologic: no easy bruising/bleeding. NEUROLOGIC: No headache, LOC or altered mental status. No weakness, numbness or tingling. Allergic/Immunologic: +seasonal allergies All other systems reviewed and negative, or as documented in HPI. PE: General: Well appearing, awake and alert, NAD. HEENT: NCAT, PERRL, EOMI, clear conjunctiva, anicteric, moist mucus membranes, clear oropharynx, no oral lesions.. Normal phonation. Uvula midline, no tonsillary hypertrophy or palatial petechiae. Neck: neck supple, FROM Resp: CTAB, normal and even respirations, no respiratory distress CVS: RRR, no murmurs, 2+ peripheral pulses throughout, no peripheral edema Abdomen: soft, NTND, no peritoneal signs. Back: nontender, normal inspection and ROM MSK: no edema, MCCLAIN x4, ROM intact. No clubbing or cyanosis. normal bulk and tone. Extremities: no calf tenderness Neuro: alert Skin: warm and well perfused, cap refill <2 sec, normal color Past History - Past Medical History Allergies/Adverse Reactions: Allergies Allergy/AdvReac Type Severity Reaction Status Date / Time No Known Allergies Allergy Verified 02/21/18 08:36 Home Medications: Ambulatory Orders Acetaminophen [Tylenol] 325 mg PO ONCE PRN 02/21/18 Ibuprofen [Advil -] 200 mg PO ONCE PRN 02/21/18 COPD: No - Surgical History Cholecystectomy: Yes - Immunization History Td Vaccination: Yes TDAP Vaccination: (10/2010) Immunization Up to Date: Yes - Suicide/Smoking/Psychosocial Hx Smoking Status: No Smoking History: Never smoked Have you smoked in the past 12 months: No Number of Cigarettes Smoked Daily: 0 Hx Alcohol Use: No Drug/Substance Use Hx: No Substance Use Type: None Hx Substance Use Treatment: No Medical Decision Making - Medical Decision Making 02/21/18 09:05 hpi as documented VS wnl. no respiratory distress, clear lungs; no hypoxia DDx influenza, URI, bronchitis, viral syndrome. well appearing. flu test_initially pending. discussed risks and benefits of influenza testing and tamiflu, side effect profile, pt elects for supportive treatment and no tamiflu. will test given she has kids at home and does not want to spread respiratory precautions, hand washing and cover cough rest and hydration advised antipyretics/analgesia otc meds prn. pt elects to leave because of family obligations, and will receive clinical followup with test results DC in stable condition, return precautions as discussed. PCP followup, which she has. influenza test came back positive, multiple attempts to call pt with results, out of window for tamiflu benefit as documented. no answer despite multiple calls left message to PMD, spoke with primary doctor group Dr. Santiago 02/21/18 14:52 02/21/18 18:08 *DC/Admit/Observation/Transfer Diagnosis at time of Disposition: URI (upper respiratory infection) Qualifiers: URI type: unspecified viral URI Qualified Code(s): J06.9 - Acute upper respiratory infection, unspecified - Discharge Dispostion Disposition: HOME Condition at time of disposition: Improved Decision to Admit order: No - Referrals Referrals: Leatha Jackson MD [Staff Physician] - - Patient Instructions Printed Discharge Instructions: How to Avoid a Cold or Flu, DI for Viral Upper Respiratory Infection -- Adult Additional Instructions: you were in the emergency department with suspected viral syndrome with upper respiratory infection your vital signs and temperature were normal The Flu test was taken and pending. minimize spread of infection given contagious nature, and cover your mouth and wash your hands adequately with soap and water x 20 seconds adequately. Stay well hydrated and rest. may take over the counter cough drops for the cough Please continue with adequate hydration, including oral hydration and/or Gatorade, keeping up with fluid intake is important. you may take Tylenol or Motrin every 6 hours and cycle through for appropriate fever and pain control. Monitor for worsening symptoms including respiratory distress, difficulty breathing, lethargy, dehydration, high persistent fevers, vomiting, bloody diarrhea, confusion or decompensating condition. Primary care doctor follow up, so please follow up in 2-3 days in the office for clinical evaluation - Post Discharge Activity Forms/Work/School Notes: Back to Work
[2018-02-21 08:43] VITALS: BP 106/72; PULSE 91; TEMP 98.7; BMI 31.7
== END 2018-02-21 09:13 | disposition home or self-care (01) ==
LOC: FER 08:33
DX: J06.9 Acute upper respiratory infection, unspecified (principal)
CPT/HCPCS: 87804; 99282-25

== ENCOUNTER 2018-05-01 10:33 | Emergency (ER) | payer OTHER ==
[2018-05-01 10:52] VITALS: BMI 32.5
[2018-05-01] MEDS ORDERED: SODIUM CHLORIDE 1,000 ML IV STA (10:58)
--- NOTE | 2018-05-01 11:10 | PDOC ---
History of Present Illness - General Chief Complaint: Cold Symptoms Stated Complaint: VIRUS Time Seen by Provider: 05/01/18 10:47 History Source: Patient Exam Limitations: No Limitations - History of Present Illness Initial Comments: 05/01/18 11:07 cc; sore throat and achy since yesterday hpi: was well until yesterday, slight diarrhea for 2 days also with sore throat, discomfort, mild, on swallowing mild frontal headache feels achy all over reduced energy no cough no vomiting no dysuria or frequency no skin rash no sick contacts Past History - Past Medical History Allergies/Adverse Reactions: Allergies Allergy/AdvReac Type Severity Reaction Status Date / Time No Known Allergies Allergy Verified 05/01/18 10:36 Home Medications: Ambulatory Orders Acetaminophen [Tylenol] 650 mg PO PRN PRN 02/21/18 Amox-Tr/K Cl [Augmentin - 875Mg Tablet] 1 tab PO BID #14 tablet 05/01/18 Naproxen [Naprosyn -] 375 mg PO BID PRN #12 tablet 05/01/18 Asthma: No COPD: No Diabetes: No HTN: No Psychiatric Problems: Yes (ANXIETY) - Surgical History Cholecystectomy: Yes - Immunization History Td Vaccination: Yes TDAP Vaccination: (10/2010) Immunization Up to Date: Yes - Suicide/Smoking/Psychosocial Hx Smoking Status: No Smoking History: Never smoked Have you smoked in the past 12 months: No Number of Cigarettes Smoked Daily: 0 Hx Alcohol Use: No Drug/Substance Use Hx: No Substance Use Type: None Hx Substance Use Treatment: No Review of Systems - Review of Systems Constitutional: Yes: Chills, Malaise, Weakness HEENTM: Yes: Ear Pain, Throat Pain. No: Recent change in vision, Difficulty Swallowing Respiratory: No: Cough, Shortness of Breath, Productive cough, Hemoptysis Cardiac (ROS): No: Symptoms Reported, See HPI, Chest Pain, Edema, Irregular Heart Rate, Lightheadedness, Palpitations, Syncope, Chest Tightness, Other ABD/GI: Yes: Other (slight loose stool x2D but not diarrhea). No: Symptoms Reported, See HPI, Abdominal Distended, Abd. Pain w/ defecation, Blood Streaked Bowels, Constipated, Diarrhea, Difficulty Swallowing, Nausea, Poor Appetite, Poor Fluid Intake, Rectal Bleeding, Vomiting, Indigestion, Abdominal cramping, Tarry Stools Musculoskeletal: Yes: Muscle Pain Integumentary: No: Symptoms Reported, See HPI, Bruising, Change in Color, Change in Hair/Nails, Dryness, Erythema, Flushing, Lesions, Lumps, Pallor, Pruritus, Rash, Sweating, Other Neurological: No: Symptoms reported, See HPI, Headache, Numbness, Paresthesia, Pre-Existing Deficit, Seizure, Tingling, Tremors, Weakness, Unsteady Gait, Ataxia, Dizziness, Other Psychiatric: No: Anxiety, Depression, Frequent Crying, Stressors, Sleep Pattern Change, Emotional Problems, Mood Swings, Change in Appetite, Other Endocrine: No: Symptoms Reported, See HPI, Excessive Sweating, Flushing, Intolerance to Cold, Intolerance to Heat, Increased Hunger, Increased Thirst, Increased Urine, Unexplained Weight Gain, Unexplained Weight Loss, Change in Weight, Other Hematologic/Lymphatic: No: Symptoms Reported, See HPI, Anemia, Blood Clots, Easy Bleeding, Easy Bruising, Bleeding Diathesis, Lymph Node Abnormalities, Swollen Glands, Other *Physical Exam - Vital Signs Last Vital Signs Temp Pulse Resp BP Pulse Ox 99.4 F 120 H 16 117/75 99 05/01/18 10:34 05/01/18 10:34 05/01/18 10:34 05/01/18 10:34 05/01/18 10:34 - Physical Exam Comments: 05/01/18 12:17 a and o x 3, appears well, non-toxic, just tacchycardic perrl conj clear op with enlarged tonsils with yellow exudate uvula midline, no trismus neck no adenopathy chest clear bs heart tacchy rr s1s2 abd soft nt nl bs no g/r extrem nl neuro nl psych nl Moderate Sedation - Procedure Monitoring Vital Signs: Procedure Monitoring Vital Signs Temperature 99.4 F 05/01/18 10:34 Pulse Rate 120 H 05/01/18 10:34 Respiratory Rate 16 05/01/18 10:34 Blood Pressure 117/75 05/01/18 10:34 O2 Sat by Pulse Oximetry (%) 99 05/01/18 10:34 ED Treatment Course - LABORATORY CBC & Chemistry Diagram: 05/01/18 11:05 05/01/18 11:05 Medical Decision Making - Medical Decision Making 05/01/18 13:55 fever, sore throat and body aches exam with swollen tonsils and exudates but looks well, notable tacchycardia in the setting of fever labs with nl WBC but increased neutrophils strep test positive chemistry ok given IV fluids, toradol and unasyn Rx for augmentin for home for strep pharyngitis Laboratory Results - last 24 hr 05/01/18 05/01/18 05/01/18 11:05 11:05 11:05 WBC 9.7 RBC 5.52 H Hgb 13.7 Hct 43.2 MCV 78.3 L MCH 24.8 L MCHC 31.6 L RDW 15.1 Plt Count 208 MPV 7.7 Absolute Neuts (auto) 8.6 Neutrophils % 88.4 H Lymphocytes % 6.3 L Monocytes % 4.0 Eosinophils % 0.5 Basophils % 0.8 Sodium 135 L Potassium 3.8 Chloride 102 Carbon Dioxide 23 Anion Gap 10 BUN 7 Creatinine 0.8 Creat Clearance w eGFR 79.85 Random Glucose 95 Calcium 8.9 Total Bilirubin 0.7 AST 20 ALT 14 Alkaline Phosphatase 81 Total Protein 7.6 Albumin 4.1 Group A Strep Rapid Positive 05/01/18 14:06 still with low grade fever, and tacchycardia reexamined, appears well, diagnosis strep throat, taking po well, home to rest and take fluids, patient feels well and is requesting discharge *DC/Admit/Observation/Transfer Diagnosis at time of Disposition: Strep pharyngitis - Discharge Dispostion Disposition: HOME Condition at time of disposition: Improved Decision to Admit order: No - Prescriptions Prescriptions: Amox-Tr/K Cl [Augmentin - 875Mg Tablet] 1 tab PO BID #14 tablet Naproxen [Naprosyn -] 375 mg PO BID PRN #12 tablet PRN Reason: fever and pain - Referrals Referrals: Leatha Jackson MD [Primary Care Provider] - - Patient Instructions Printed Discharge Instructions: DI for Strep Throat Additional Instructions: examination for fever and sore throat swollen tonsils with pus strep test positive diagnosis strep throat drink lots of fluid, hot tea and soup take tylenol every 4 hours for fever and pain take naprosyn 375 mg 2x per day for fever and pain (can take one of these medicines or both for stronger relief) take augmentin 875 antibiotic twice a day for 7 days follow up with your doctor return to the ER for severe or progressive symptoms - Post Discharge Activity Forms/Work/School Notes: Back to Work
[2018-05-01 11:21] LABS: HEMOGLOBIN 13.7 GM/dl (10.7-15.3); LYMPH % 6.3 % (8-40); RDW 15.1 % (11.6-15.6)
[2018-05-01 11:25] LABS: BASO % 0.8 % (0-2.0); EOS % 0.5 % (0-4.5); HEMATOCRIT 43.2 % (32.4-45.2); MCH 24.8 pg (25.7-33.7); MCHC 31.6 g/dl (32.0-36.0); MEAN CELL VOLUME 78.3 fl (80-96); MEAN PLT VOLUME 7.7 fl (7.5-11.1); NEUT % 88.4 % (42.8-82.8); PLATELET COUNT 208 K/MM3 (134-434); RBC 5.52 M/mm3 (3.60-5.2); WHITE BLOOD COUNT 9.7 K/mm3 (4.0-10.8)
[2018-05-01 11:38] LABS: ALBUMIN 4.1 g/dl (3.4-5.0); ALK PHOS 81 U/L (45-117); ANION GAP 10 MMOL/L (8-16); BILIRUBIN,TOTAL 0.7 mg/dl (0.2-1); BLOOD UREA NITROGEN 7 mg/dl (7-18); CALCIUM 8.9 mg/dl (8.5-10); CHLORIDE 102 mmol/L (98-107); CO2 23 mmol/L (21-32); CREATININE 0.8 mg/dl (0.55-1.3); GLUCOSE,RANDOM 95 mg/dl (74-106); POTASSIUM 3.8 mmol/L (3.5-5.1); SGOT/AST 20 U/L (15-37); SGPT/ALT 14 U/L (13-61); SODIUM 135 mmol/L (136-145); TOT PROT 7.6 g/dl (6.4-8.2)
[2018-05-01] MEDS ORDERED: KETOROLAC TROMETHAMINE 30 MG/1 ML VIAL IVPUSH ONE (12:13)
[2018-05-01] MEDS ORDERED: KETOROLAC TROMETHAMINE 30 MG/1 ML VIAL ONE (12:18)
[2018-05-01] MEDS ORDERED: AMPICILLIN NA/SULBACTAM NA 3 GM in SODIUM CHLORIDE 100 ML IVPB ONE (12:45)
[2018-05-01] MEDS ORDERED: AMPICILLIN NA/SULBACTAM NA 3 GM VIAL ONE (12:57)
[2018-05-01 14:04] VITALS: BP 111/72; PULSE 116; TEMP 100.3
== END 2018-05-01 14:14 | disposition home or self-care (01) ==
LOC: FER 10:33
PROC: 3E03329 Introduction of Other Anti-infective into Peripheral Vein, Percutaneous Approach (ICD-10-PCS; principal; 2018-05-01)
PROC: 3E0333Z Introduction of Anti-inflammatory into Peripheral Vein, Percutaneous Approach (ICD-10-PCS; 2018-05-01)
PROC: 3E0337Z Introduction of Electrolytic and Water Balance Substance into Peripheral Vein, Percutaneous Approach (ICD-10-PCS; 2018-05-01)
DX: J02.0 Streptococcal pharyngitis (principal); F41.9 Anxiety disorder, unspecified
CPT/HCPCS: 36415; 80053; 85025; 87880; 99284-25; J7030

== ENCOUNTER 2019-08-28 07:40 | Emergency (ER) | payer OTHER ==
[2019-08-28 07:53] VITALS: TEMP 98.2; BMI 30.8
[2019-08-28] MEDS ORDERED: ONDANSETRON 4 MG/2 ML VIAL IVPUSH ONE (07:55)
[2019-08-28] MEDS ORDERED: MECLIZINE HCL 25 MG TABLET (FP) PO ONE (07:55)
[2019-08-28] MEDS ORDERED: ACETAMINOPHEN 1000 MG/100 ML VIAL (NON FORMULARY) IVPB ONE (07:55)
[2019-08-28] MEDS ORDERED: SODIUM CHLORIDE 0.9% 1000 ML INFUS.BAG IV ONE (07:55)
[2019-08-28] MEDS ORDERED: FAMOTIDINE 20 MG TABLET PO ONE (07:55)
[2019-08-28] MEDS ORDERED: ACETAMINOPHEN INJECTION 100 ML IVPB ONE (07:59)
[2019-08-28] MEDS ORDERED: FAMOTIDINE 20 MG TABLET ONE (08:00)
[2019-08-28] MEDS ORDERED: ONDANSETRON 4 MG/2 ML VIAL ONE (08:00)
[2019-08-28] MEDS ORDERED: MECLIZINE HCL 25 MG TABLET (FP) ONE (08:03)
[2019-08-28 08:20] LABS: BASO % 0.5 % (0-2.0)
[2019-08-28 08:23] LABS: HEMATOCRIT 35.9 % (32.4-45.2); HEMOGLOBIN 11.5 GM/dl (10.7-15.3); LYMPH % 18.2 % (8-40); MCH 23.5 pg (25.7-33.7); MEAN CELL VOLUME 73.3 fl (80-96); MEAN PLT VOLUME 7.2 fl (7.5-11.1); MONO % 4.8 % (3.8-10.2); NEUT % 74.5 % (42.8-82.8); PLATELET COUNT 252 K/MM3 (134-434); RBC 4.89 M/mm3 (3.60-5.2); RDW 16.1 % (11.6-15.6); WHITE BLOOD COUNT 5.8 K/mm3 (4.0-10.8)
[2019-08-28 08:40] LABS: ALBUMIN 3.8 g/dl (3.4-5.0); BILIRUBIN,TOTAL 0.2 mg/dl (0.2-1); CALCIUM 9.1 mg/dl (8.5-10); CREATININE 0.7 mg/dl (0.55-1.3); POTASSIUM 3.8 mmol/L (3.5-5.1); TOT PROT 6.6 g/dl (6.4-8.2)
--- NOTE | 2019-08-28 09:10 | PDOC ---
History of Present Illness - General Chief Complaint: Pain Stated Complaint: upset stomach Time Seen by Provider: 08/28/19 07:45 - History of Present Illness Initial Comments: 08/28/19 09:03 39 years old with no significant past medical history presents to the emergency department with 2 complaints. Patient has had an upset stomach with diffuse epigastric pain and diarrhea for 2 days. Was feeling unwell yesterday with some crampy discomfort that felt better than last night began to feel unwell stood up from bed began to experience room spinning laid back down went to the bathroom had several episodes of loose diarrhea nonbloody nonmucoid return to bed. Fell asleep for a few more hours. When she woke up this morning and change position again felt a sensation of room spinning. Diarrhea has continued. No fever no travel no sick contacts pain is mild to moderate intermittent comes and goes room spinning seems to happen with change in position Past History - Medical History Allergies/Adverse Reactions: Allergies Allergy/AdvReac Type Severity Reaction Status Date / Time No Known Allergies Allergy Verified 08/28/19 07:42 Home Medications: Ambulatory Orders Meclizine HCl [Antivert -] 25 mg PO TID #21 tablet 08/28/19 Topiramate [Topamax] 50 mg PO BID 08/28/19 Asthma: No COPD: No Diabetes: No HTN: No Psychiatric Problems: Yes (ANXIETY) - Surgical History Cholecystectomy: Yes - Immunization History Td Vaccination: Yes TDAP Vaccination: (10/2010) Immunization Up to Date: Yes - Psycho-Social/Smoking History Smoking Status: No Smoking History: Never smoked Have you smoked in the past 12 months: No Number of Cigarettes Smoked Daily: 0 Information on smoking cessation initiated: No - Substance Abuse Hx (Audit-C & DAST Scrn) How often the patient has a drink containing alcohol: Monthly or less Number of drinks the patient has on a typical day: 1 or 2 How often the patient has six or more drinks on one occasion: Never Score: In Men: 4 or > Positive; In Women: 3 or > Positive: 1 Screen Result (Pos requires Nsg. Audit-10AR): Negative In the last yr the pt used illegal drug/Rx for NonMed reason: No Score: Yes response is considered Positive: 0 Screen Result (Positive result requires Nsg. DAST-10): Negative Review of Systems - Review of Systems Comments:: 08/28/19 09:10 ROS: A complete review of 10 out of 10 review of systems is taken and is negative apart from what is previously mentioned below and in the HPI. *Physical Exam - Vital Signs Last Vital Signs Temp Pulse Resp BP Pulse Ox 98.2 F 85 18 113/63 98 08/28/19 07:41 08/28/19 07:41 08/28/19 07:41 08/28/19 07:41 08/28/19 07:41 - Physical Exam 08/28/19 09:10 Vitals: Triage Vital signs reviewed General Appearance: No acute distress, well nourished well developed, Head: Atraumatic, Eyes: Pupils equal reactive round, extraocular movement intact Ears: TM's normal bilaterally;y Chest Wall: Nontender Cardiac: Regular rate and rhythym, no murmurs, no rubs, no gallops, Lungs: Clear to auscultation bilateral, good air movement bilaterally, Abdomen: Soft, non distended, normal bowel sounds, non tender to palpation Extremities: Full range of motion to all extremities, no cyanosis, clubbing, or edema Skin: Warm and dry, no rashes or lesions, no rash, no petechiae Neuro: AOX3; cranial Nerves 2-12 grossly intact, strength intact to all e xtremities, sensation intact to all extremities, gait normal, Positive Lisbeth Hallpike when laying down and turning head to the left Psych: Normal mood, normal affect ED Treatment Course - LABORATORY CBC & Chemistry Diagram: 08/28/19 08:15 08/28/19 07:54 - ADDITIONAL ORDERS Additional order review: Laboratory Results 08/28/19 08/28/19 07:54 07:54 Sodium 137 Potassium 3.8 Chloride 111 H Carbon Dioxide 18 L Anion Gap 8 BUN 11.0 Creatinine 0.7 Est GFR (CKD-EPI)AfAm 125.61 Est GFR (CKD-EPI)NonAf 108.38 Random Glucose 109 H Calcium 9.1 Total Bilirubin 0.2 AST 18 ALT 14 Alkaline Phosphatase 63 Troponin I < 0.03 Total Protein 6.6 Albumin 3.8 08/28/19 08:15 RBC 4.89 MCV 73.3 L MCHC 32.0 RDW 16.1 H MPV 7.2 L Neutrophils % 74.5 Lymphocytes % 18.2 Monocytes % 4.8 Eosinophils % 2.0 Basophils % 0.5 - Medications Given in the ED: ED Medications Discontinued Medications Generic Name Dose Route Start Last Admin Trade Name Ruthy PRN Reason Stop Dose Admin Acetaminophen 1,000 mg 08/28/19 07:55 08/28/19 08:15 Ofirmev Injection - IVPB 08/28/19 07:56 1,000 mg ONCE ONE Administration Famotidine 20 mg 08/28/19 07:55 08/28/19 08:24 Pepcid - PO 08/28/19 07:56 20 mg ONCE ONE Administration Meclizine HCl 50 mg 08/28/19 07:55 08/28/19 08:22 Antivert - PO 08/28/19 07:56 50 mg ONCE ONE Administration Ondansetron HCl 4 mg 08/28/19 07:55 08/28/19 08:24 Zofran Injection IVPUSH 08/28/19 07:56 4 mg ONCE ONE Administration Sodium Chloride 1,000 ml 08/28/19 07:55 08/28/19 08:05 Normal Saline - IV 08/28/19 07:56 1,000 ml ONCE ONE Administration Medical Decision Making - Medical Decision Making 08/28/19 09:37 History and examination consistent with benign positional vertigo asymptomatic when still symptomatic when laying down with head to the left. No risk factors We will check labs hydrate observe and reassess Status post fluids meclizine Zofran Pepcid and patient feels much better able to ambulate comfortably repeat neurologic exam is normal Findings, the need for follow-up and strict return instructions discussed with patient. Discharge - Discharge Information Problems reviewed: Yes Clinical Impression/Diagnosis: Vertigo Diarrhea Qualifiers: Diarrhea type: unspecified type Qualified Code(s): R19.7 - Diarrhea, unspecified Condition: Stable - Admission No - Follow up/Referral Referrals: Ellis De MD [Staff Physician] - - Patient Discharge Instructions Patient Printed Discharge Instructions: Vertigo, Benign Paroxysmal Positional Vertigo Additional Instructions: Drink plenty of fluids. Take meclizine as prescribed. Take [id number] probiotic and Pepcid as directed on package. Perform Troy maneuver as instructed 3 times a day. If no improvement by tomorrow follow-up with Dr. De next week. Return to the ED for any severe worsening symptoms room spinning that is persistent constant or for any concerns. - Post Discharge Activity Work/Back to School Note: Back to Work
[2019-08-28 10:28] LABS: HCG,QUALITATIVE URINE Negative
[2019-08-28 10:46] VITALS: BP 114/67; PULSE 68
--- NOTE | 2019-08-29 09:29 | EKG ---
Test Reason : Blood Pressure : / mmHG Vent. Rate : 077 BPM Atrial Rate : 077 BPM P-R Int : 124 ms QRS Dur : 090 ms QT Int : 412 ms P-R-T Axes : 080 010 018 degrees QTc Int : 466 ms NORMAL SINUS RHYTHM NORMAL ECG WHEN COMPARED WITH ECG OF 06-OCT-2016 16:37, NO SIGNIFICANT CHANGE WAS FOUND Confirmed by Tad Rios ([id number]) on 08/29/2019 9:29:03 AM Referred By: KARISSA Confirmed By:Tad Rios
== END 2019-08-28 11:04 | disposition home or self-care (01) ==
LOC: FER 07:40
PROC: 3E033GC Introduction of Other Therapeutic Substance into Peripheral Vein, Percutaneous Approach (ICD-10-PCS; principal; 2019-08-28)
DX: R42 Dizziness and giddiness (principal); R19.7 Diarrhea, unspecified
CPT/HCPCS: 36415; 80053; 81003; 84484; 84703; 85025; 93005; 99284-25; J0131

== ENCOUNTER 2019-12-29 15:02 | Emergency (ER) | payer OTHER ==
[2019-12-29 15:11] VITALS: BP 93/58; PULSE 93; TEMP 98.3; BMI 33.2
== END 2019-12-29 16:05 | disposition home or self-care (01) ==
LOC: FER 15:02
DX: U07.1 COVID-19 (principal); J06.9 Acute upper respiratory infection, unspecified
CPT/HCPCS: 87804; 99282-25; C9803; U0003

== ENCOUNTER 2020-01-19 18:04 | Emergency (ER) | payer OTHER ==
[2020-01-19 18:45] VITALS: BP 111/80; PULSE 88; TEMP 98.6; BMI 31.1
== END 2020-01-19 18:28 | disposition home or self-care (01) ==
LOC: FER 18:04
DX: R07.0 Pain in throat (principal); U07.1 COVID-19
CPT/HCPCS: 99283-25

== ENCOUNTER 2020-05-25 17:06 | Emergency (ER) | payer OTHER ==
[2020-05-25 17:25] VITALS: BP 116/76; PULSE 88; TEMP 98.1; BMI 30.9
== END 2020-05-25 18:05 | disposition home or self-care (01) ==
LOC: FER 17:06
DX: K08.89 Other specified disorders of teeth and supporting structures (principal)
CPT/HCPCS: 99281-25

== ENCOUNTER 2020-05-27 11:09 | Emergency (ER) | payer OTHER ==
[2020-05-27 11:26] VITALS: BP 126/84; PULSE 106; TEMP 100.2; BMI 33.2
== END 2020-05-27 11:37 | disposition home or self-care (01) ==
LOC: FER 11:09
DX: K12.2 Cellulitis and abscess of mouth (principal)
CPT/HCPCS: 99282-25

== ENCOUNTER 2020-06-22 19:39 | Emergency (ER) | payer OTHER ==
[2020-06-22 20:07] VITALS: BP 120/83; PULSE 108; TEMP 99; BMI 33.2
== END 2020-06-22 20:25 | disposition home or self-care (01) ==
LOC: FER 19:39
DX: J06.9 Acute upper respiratory infection, unspecified (principal)
CPT/HCPCS: 99281-25

== ENCOUNTER 2020-07-15 12:04 | Emergency (ER) | payer OTHER ==
[2020-07-15 12:24] VITALS: BP 113/76; PULSE 77; TEMP 98.9; BMI 33.2
[2020-07-15] MEDS ORDERED: KETOROLAC TROMETHAMINE 30 MG/1 ML VIAL IM ONE (12:38)
[2020-07-15] MEDS ORDERED: diazePAM 5 MG TABLET PO ONE (12:38)
[2020-07-15] MEDS ORDERED: KETOROLAC TROMETHAMINE 30 MG/1 ML VIAL ONE (12:47)
== END 2020-07-15 13:05 | disposition home or self-care (01) ==
LOC: FER 12:04
PROC: 3E0233Z Introduction of Anti-inflammatory into Muscle, Percutaneous Approach (ICD-10-PCS; principal; 2020-07-15)
DX: S39.012A Strain of muscle, fascia and tendon of lower back, initial encounter (principal)
CPT/HCPCS: 99284-25

== ENCOUNTER 2020-08-08 13:24 | Emergency (ER) | payer OTHER | END 2020-08-08 14:09 | disposition home or self-care (01) | LOC: FER 13:24 | DX: I83.93 Asymptomatic varicose veins of bilateral lower extremities (principal) | CPT/HCPCS: 99283-25 ==

== ENCOUNTER 2020-09-09 20:05 | Emergency (ER) | payer OTHER ==
[2020-09-09 20:16] VITALS: BP 111/76; PULSE 87; TEMP 98.8; BMI 33.3
[2020-09-11 13:08] LABS: SARS-CoV-2 NAA Not Detected (Not Detected)
== END 2020-09-09 21:09 | disposition home or self-care (01) ==
LOC: FER 20:05
DX: J02.9 Acute pharyngitis, unspecified (principal)
CPT/HCPCS: 87880; 99283-25; C9803; U0003; U0005

== ENCOUNTER 2020-09-16 13:07 | Emergency (ER) | payer OTHER | END 2020-09-16 16:03 | disposition home or self-care (01) | LOC: JVIRT 13:07 | DX: Z11.52 Encounter for screening for COVID-19 (principal) | CPT/HCPCS: C9803; Q3014-GT; U0003; U0005 ==

== ENCOUNTER 2020-10-16 18:05 | Emergency (ER) | payer OTHER ==
[2020-10-16 18:39] VITALS: BP 119/74; PULSE 95; TEMP 98.8; BMI 32.5
== END 2020-10-16 18:50 | disposition home or self-care (01) ==
LOC: FER 18:05
DX: J06.9 Acute upper respiratory infection, unspecified (principal); S99.921A Unspecified injury of right foot, initial encounter; W22.8XXA Striking against or struck by other objects, initial encounter
CPT/HCPCS: 99283-25; C9803; U0003; U0005

== ENCOUNTER 2020-12-26 09:47 | Emergency (ER) | payer OTHER ==
[2020-12-26 10:04] VITALS: BP 113/77; PULSE 80; TEMP 98.6; BMI 34.0
[2020-12-26] MEDS ORDERED: SODIUM CHLORIDE 0.9% 500 ML INFUS.BAG IV ONE (10:13)
[2020-12-26] MEDS ORDERED: ACETAMINOPHEN 1000 MG/100 ML VIAL IVPB ONE (10:16)
[2020-12-26] MEDS ORDERED: ACETAMINOPHEN INJECTION 100 ML IVPB ONE (10:23)
[2020-12-26 10:51] LABS: HCG,QUALITATIVE URINE Negative
[2020-12-26 11:00] LABS: BASO % 0.9 % (0-2.0); EOS % 2.2 % (0-4.5); HEMOGLOBIN 11.6 GM/dl (10.7-15.3); LYMPH % 28.6 % (8-40); MCH 23.4 pg (25.7-33.7); MCHC 31.3 g/dl (32.0-36.0); MEAN CELL VOLUME 74.7 fl (80-96); MEAN PLT VOLUME 7.5 fl (7.5-11.1); MONO % 6.9 % (3.8-10.2); NEUT % 61.4 % (42.8-82.8); PLATELET COUNT 243 10^3/uL (134-434); RBC 4.95 M/mm3 (3.60-5.2); RDW 15.8 % (11.6-15.6); WHITE BLOOD COUNT 5.1 K/mm3 (4.0-10.8)
[2020-12-26 11:07] LABS: BILIRUBIN,TOTAL 0.4 mg/dl (0.2-1); CALCIUM 9.2 mg/dl (8.5-10); CREATININE 0.6 mg/dl (0.55-1.3); TOT PROT 7.4 g/dl (6.4-8.2)
[2020-12-26 11:10] LABS: ADD RBC MORPHOLOGY YES
[2020-12-26 14:16] LABS: ANISOCYTOSIS 1+; PLATELET ESTIMATE ADEQUATE
== END 2020-12-26 11:41 | disposition home or self-care (01) ==
LOC: FER 09:47
PROC: 3E0333Z Introduction of Anti-inflammatory into Peripheral Vein, Percutaneous Approach (ICD-10-PCS; principal; 2020-12-26)
DX: R42 Dizziness and giddiness (principal); R19.7 Diarrhea, unspecified
CPT/HCPCS: 36415; 80053; 81003; 84703; 85025; 87086; 93005; 99284-25; C9803; J0131; U0003; U0005

== ENCOUNTER 2021-03-26 06:42 | Emergency (ER) | payer OTHER ==
[2021-03-26 06:49] VITALS: BP 118/73; PULSE 75; TEMP 98; BMI 32.5
[2021-03-26] MEDS ORDERED: KETOROLAC TROMETHAMINE 30 MG/1 ML VIAL ONE (07:14)
[2021-03-26] MEDS ORDERED: METHOCARBAMOL 500 MG TABLET ONE (07:14)
[2021-03-26] MEDS ORDERED: KETOROLAC TROMETHAMINE 15 MG/ML VIAL IM ONE (07:17)
[2021-03-26] MEDS ORDERED: METHOCARBAMOL 500 MG TABLET PO ONE (07:20)
== END 2021-03-26 07:39 | disposition home or self-care (01) ==
LOC: FER 06:42
PROC: 3E023GC Introduction of Other Therapeutic Substance into Muscle, Percutaneous Approach (ICD-10-PCS; principal; 2021-03-26)
DX: M54.2 Cervicalgia (principal); M62.838 Other muscle spasm
CPT/HCPCS: 96372; 99284-25

== ENCOUNTER 2021-05-15 01:50 | Emergency (ER) | payer OTHER ==
[2021-05-15] MEDS ORDERED: MAG HYDROX/AL HYDROX/SIMETH 30 ML UNIT-DOSE CUP PO ONE (01:56)
[2021-05-15 01:59] VITALS: BP 128/85; TEMP 98.2; BMI 35.4
[2021-05-15] MEDS ORDERED: ALPRAZolam 1 MG TABLET PO PRN ×2 (01:59→02:00)
[2021-05-15] MEDS ORDERED: MAG HYDROX/AL HYDROX/SIMETH 30 ML UNIT-DOSE CUP ONE (02:01)
[2021-05-15] MEDS ORDERED: ALPRAZolam 0.25 MG TABLET ONE (02:02)
[2021-05-15 02:23] VITALS: PULSE 108
== END 2021-05-15 02:33 | disposition home or self-care (01) ==
LOC: FER 01:50
DX: F41.0 Panic disorder [episodic paroxysmal anxiety] (principal)
CPT/HCPCS: 99283-25

== ENCOUNTER 2021-06-07 12:12 | Emergency (ER) | payer OTHER ==
[2021-06-07 12:29] VITALS: BP 130/83; PULSE 98; TEMP 97.9; BMI 34.0
== END 2021-06-07 13:05 | disposition home or self-care (01) ==
LOC: FER 12:12
DX: S91.101A Unspecified open wound of right great toe without damage to nail, initial encounter (principal); W22.8XXA Striking against or struck by other objects, initial encounter
CPT/HCPCS: 99282-25

== ENCOUNTER 2021-06-11 19:07 | Emergency (ER) | payer OTHER ==
[2021-06-11 19:14] VITALS: BP 133/72; PULSE 85; TEMP 97.9; BMI 35.4
== END 2021-06-11 19:42 | disposition home or self-care (01) ==
LOC: FER 19:07
DX: H92.01 Otalgia, right ear (principal)
CPT/HCPCS: 99283-25

== ENCOUNTER 2021-06-25 10:46 | Emergency (ER) | payer OTHER ==
[2021-06-25 11:22] VITALS: BP 120/65; PULSE 83; TEMP 97.7; BMI 34.7
[2021-06-25] MEDS ORDERED: LORazepam 1 MG TABLET PO ONE (11:28)
[2021-06-25] MEDS ORDERED: LORazepam 0.5 MG TABLET ONE (11:39)
== END 2021-06-25 11:46 | disposition home or self-care (01) ==
LOC: SUPCPDRO 10:46 → FER 10:46
DX: F41.9 Anxiety disorder, unspecified (principal)
CPT/HCPCS: 99283-25

== ENCOUNTER 2021-07-25 02:59 | Emergency (ER) | payer OTHER ==
[2021-07-25 03:15] VITALS: TEMP 97.7; BMI 34.7
[2021-07-25 04:40] LABS: EPI CELLS >36 /uL (0-25.1); HYALINE CASTS 51 /uL (0-3.1); PH,URINE 5.5 (5.0-8.0); URINE APPEARANCE TURBID; URINE BACTERIA 2295 /uL (0-1359); URINE BILIRUBIN 1+ (NEGATIVE); URINE COLOR DK YELLOW; URINE GLUCOSE (UA) NEGATIVE (NEGATIVE); URINE KETONE TRACE (NEGATIVE); URINE LEUK ESTERASE TRACE (NEGATIVE); URINE NITRITE NEGATIVE (NEGATIVE); URINE PROTEIN 3+ (NEGATIVE); URINE WBC 256 /uL (0-25.8)
[2021-07-25 04:41] LABS: BASO % 0.2 % (0-2.0); EOS % 0.5 % (0-4.5); HEMOGLOBIN 12.7 GM/dL (10.7-15.3); LYMPH % 7.7 % (8-40); MCH 23.2 pg (25.7-33.7); MCHC 31.7 g/dl (32.0-36.0); MEAN CELL VOLUME 73.3 fl (80-96); MEAN PLT VOLUME 7.1 fl (7.5-11.1); MONO % 6.4 % (3.8-10.2); NEUT % 85.2 % (42.8-82.8); PLATELET COUNT 246 10^3/uL (134-434); RBC 5.46 M/mm3 (3.60-5.2); WHITE BLOOD COUNT 11.9 K/mm3 (4.0-10.0)
[2021-07-25 05:02] LABS: CALCIUM 9.4 mg/dL (8.5-10.1)
[2021-07-25 05:03] LABS: ALBUMIN 4.1 g/dl (3.4-5.0); BLOOD UREA NITROGEN 12.3 mg/dL (7-18)
[2021-07-25 05:06] LABS: CREATININE 0.8 mg/dL (0.55-1.3)
[2021-07-25 05:08] LABS: BILIRUBIN,TOTAL 0.3 mg/dL (0.2-1)
[2021-07-25] MEDS ORDERED: NITROFURANTOIN MACROCRYSTAL 50 MG CAPSULE (FP) ONE (05:52)
[2021-07-25] MEDS ORDERED: LOPERAMIDE HCL 2 MG CAPSULE PO ONE (05:54)
[2021-07-25] MEDS ORDERED: LOPERAMIDE HCL 2 MG CAPSULE ONE (05:55)
[2021-07-25] MEDS ORDERED: NITROFURANTOIN MACROCRYSTAL 50 MG CAPSULE (FP) PO SCH (06:00)
[2021-07-25 06:07] VITALS: BP 135/84; PULSE 102
== END 2021-07-25 06:07 | disposition home or self-care (01) ==
LOC: FER 02:59
DX: N30.00 Acute cystitis without hematuria (principal)
CPT/HCPCS: 36415; 80053; 81003; 85025; 99283-25

== ENCOUNTER 2022-02-03 10:47 | Emergency (ER) | payer OTHER ==
[2022-02-03] MEDS ORDERED: DEXAMETHASONE LIQUID 0.5 MG/5 ML PO ONE (11:01)
[2022-02-03] MEDS ORDERED: IBUPROFEN 600 MG TABLET (FP) PO ONE ×2 (11:02→11:06)
[2022-02-03 11:06] VITALS: BP 124/85; PULSE 86; RESP 18; TEMP 97.8; BMI 34.7
[2022-02-03] MEDS ORDERED: DEXAMETHASONE SOD PHOSPHATE 10 MG/1 ML VIAL ONE (11:06)
== END 2022-02-03 12:34 | disposition home or self-care (01) ==
LOC: FER 10:47
DX: K12.2 Cellulitis and abscess of mouth (principal); J02.9 Acute pharyngitis, unspecified
CPT/HCPCS: 0241U-QW; 87070; 99283-25

== ENCOUNTER 2022-07-15 14:28 | Emergency (ER) | payer OTHER ==
[2022-07-15 14:41] VITALS: BP 126/79; PULSE 77; RESP 18; TEMP 98.4; BMI 34.0
[2022-07-15] MEDS ORDERED: ALBUTEROL SO4 2.5/IPRATROPIUM 0.5 INH SOL 3 ML VIAL.NEB. NEB ONE ×2 (14:47→14:49)
== END 2022-07-15 16:02 | disposition home or self-care (01) ==
LOC: FER 14:28
PROC: 3E0F7GC Introduction of Other Therapeutic Substance into Respiratory Tract, Via Natural or Artificial Opening (ICD-10-PCS; principal; 2022-07-15)
DX: J40 Bronchitis, not specified as acute or chronic (principal); R05.9 Cough, unspecified; R09.89 Other specified symptoms and signs involving the circulatory and respiratory systems; R07.89 Other chest pain; R53.81 Other malaise; R42 Dizziness and giddiness; R07.0 Pain in throat; Z20.822 Contact with and (suspected) exposure to COVID-19
CPT/HCPCS: 0241U-QW; 71046-TC-FY; 99284-25

== ENCOUNTER 2022-11-27 08:23 | Emergency (ER) | payer OTHER ==
[2022-11-27 08:59] VITALS: BP 121/98; PULSE 78; RESP 18; TEMP 97.9; BMI 35.9
== END 2022-11-27 09:15 | disposition home or self-care (01) ==
LOC: FER 08:23
DX: R05.9 Cough, unspecified (principal); R09.3 Abnormal sputum; R09.81 Nasal congestion; R51.9 Headache, unspecified; B34.9 Viral infection, unspecified; Z20.822 Contact with and (suspected) exposure to COVID-19
CPT/HCPCS: 0241U-QW; 99283-25